=== PATIENT | male | born 1940 | race Caucasian/White ===

== ENCOUNTER 2016-07-03 12:21 | Inpatient (IN) | payer MEDICARE, OTHER ==
[~2016-07-03] VITALS: Ht 180.3 cm; Wt 81.0 kg
[2016-07-07] MEDS ORDERED: OMEP20TA PO (08:41)
[2016-07-07] MEDS ORDERED: ASPI1TAB69 PO (08:41)
[2016-07-07] MEDS ORDERED: AMLO10TA2 PO (08:41)
[2016-07-07] MEDS ORDERED: ROSU1TAB6 PO (08:41)
[2016-07-07] MEDS ORDERED: DIPH25CA PO (08:41)
[2016-07-07] MEDS ORDERED: ZETI10TA5 PO (08:41)
[2016-07-07] MEDS ORDERED: NIAC500T5 PO (08:41)
[2016-07-22 07:18] VITALS: BP 123/80; PULSE 66; RESP 16; TEMP 97.7; O2SAT 97
[2016-07-22] MEDS ORDERED: SODIUM CHLOR 0.9% 250 ML INJ 250 ML ONE (07:26)
[2016-07-22] MEDS ORDERED: VANCOMYCIN HCL 1000 MG VIAL ONE (07:26)
[2016-07-22] MEDS ORDERED: LACTATED RINGER'S 1000 ML INJ 1,000 ML ONE (07:26)
[2016-07-22] MEDS ORDERED: ceFAZolin 2 GM PREMIX 50 ML ONE (07:26)
[2016-07-22] MEDS ORDERED: DEXAMETHASONE SOD PHOS 20 MG/5 ML VIAL ONE (07:26)
[2016-07-22] MEDS ORDERED: INSULIN HUMAN REGULAR 1,000 UNITS/10 ML VIAL SQ PRN (07:30)
[2016-07-22] MEDS ORDERED: SODIUM CHLORID 0.9% 500 ML IV PRN (07:30)
[2016-07-22] MEDS ORDERED: METOPROLOL TARTRATE 25 MG TAB PO PRN (07:30)
[2016-07-22] MEDS ORDERED: POVIDONE IODINE 5% (ANTISEPSIS KIT) 4 APPLICATIONS EACH NARE PRN (07:30)
[2016-07-22] MEDS ORDERED: CHLORHEXIDINE GLUCONATE 2 % 1 PACK (2 CLOTHS) TOPICAL PRN (07:30)
[2016-07-22] MEDS ORDERED: LACTATED RINGER'S 1000 ML IV PRN (07:30)
[2016-07-22] MEDS ORDERED: POVIDONE IODINE 7.5% SCRUB 118 ML BOTTLE TOPICAL SCH (07:45)
[2016-07-22] MEDS ORDERED: ceFAZolin 2 GM PREMIX 50 ML IV SCH (07:45)
[2016-07-22] MEDS ORDERED: ROPIVACAINE PERI-ARTICULAR INJECTION. P-ARTICULR SCH ×5 (07:45)
[2016-07-22] MEDS ORDERED: VANCOMYCIN 1000 MG/NS 250 ML (for <70 kg) IV SCH ×2 (07:45)
[2016-07-22] MEDS ORDERED: TRANEXAMIC ACID IV SCH ×2 (07:45→12:00)
[2016-07-22] MEDS ORDERED: DEXAMETHASONE SOD PHOS 20 MG/5 ML VIAL IV SCH (07:45)
[2016-07-22] MEDS ORDERED: SODIUM CHLORIDE 0.9% IV SCH ×2 (07:45→12:00)
[2016-07-22] MEDS ORDERED: GENTAMICIN SULFATE 80 MG/2 ML VIAL ONE (07:58)
[2016-07-22] MEDS ORDERED: ACETAMINOPHEN 1000 MG/100 ML VIAL IV ONE (08:11)
[2016-07-22] MEDS ORDERED: fentaNYL CITRATE 250 MCG/5 ML AMP ONE (08:11)
[2016-07-22] MEDS ORDERED: MIDAZOLAM HCL 2 MG/2 ML VIAL ONE ×2 (08:11→11:05)
[2016-07-22] MEDS ORDERED: ALUMINUM/MAGNESIUM/SIMETH 30 ML CUP PO PRN (10:30)
[2016-07-22] MEDS ORDERED: MORPHINE SULFATE 4 MG/ML INJ IV PUSH PRN (10:30)
[2016-07-22] MEDS ORDERED: diphenhydrAMINE HCL 50 MG/ML VIAL IV PRN (10:30)
[2016-07-22] MEDS ORDERED: Post-op Orders (for Pharmacy) MISC XX ONE (10:30)
[2016-07-22] MEDS ORDERED: NALOXONE HCL 0.4 MG/ML AMP IV PRN (10:30)
[2016-07-22] MEDS ORDERED: SODIUM CHLORIDE 0.9% FLUSH 5 ML FLUSH IVF PRN (10:30)
[2016-07-22] MEDS ORDERED: MAGNESIUM HYDROXIDE SUSP 30 ML CUP PO PRN (10:30)
[2016-07-22] MEDS ORDERED: SODIUM CHLOR 0.9% 1000 ML INJ 1,000 ML IV SCH (10:30)
[2016-07-22] MEDS ORDERED: BISACODYL 10 MG SUPP RECTAL PRN (10:30)
[2016-07-22] MEDS ORDERED: ONDANSETRON HCL 4 MG/2 ML VIAL IVP PRN (10:30)
[2016-07-22] MEDS ORDERED: ACETAMINOPHEN/HYDROcodone 325 MG/5 MG TAB PO PRN (10:30)
--- NOTE | 2016-07-22 10:33 | PD.OP ---
cc: Sami Abbott MD Operative Report Date of Surgery: Jul 22, 2016 Preoperative Diagnosis: Right knee severe osteoarthritis. Postoperative Diagnosis: Same Procedure: Right total knee arthroplasty. Anesthesia: Spinal and adductor canal block Surgeon: Sami Abbott Environmental Tech(s): PAUL Manrique The surgical procedure was assisted by my Advanced Registered Nurse Practitioner. My SPRING COVERER presence was necessary throughout this case for the manipulation and positioning of the surgical extremity. My SPRING COVERER was assisting me throughout the duration of this procedure. The skill set of an Advance Registered Nurse Practitioner was medically necessary to complete this procedure. During the surgical case, the surgical garment assembler was working at the back table and the Advance Registered Nurse Practitioner was directly assisting me. Operation and Findings: IMPLANTS: DePuy Attune: Patella: size 38. Femur, posterior stabilized size 8. Tibia, rotating platform size 7. Tibial insert, rotating platform, posterior stabilized size 5 mm thickness. ESTIMATED BLOOD LOSS: 200 cc TOURNIQUET TIME: 39 minutes at 250 mmHg pressure. JUSTIFICATION FOR PROCEDURE: The patient has end-stage osteoarthritis to the knee. There is an attached conservative measures pathway form in the chart that describes the nonoperative measures that were undertaken prior to consideration of surgical management. The patient understood the risks and benefits of surgical management. See my office notes for further details PROCEDURE: The patient was brought back to the operative theatre. Adequate anesthesia was obtained. The patient received intravenous vancomycin and Ancef. The lower extremity was prepped and draped in the usual sterile fashion.The leg was exsanguinated, the tourniquet was raised. A standard anterior incision was performed followed by medial parapatellar arthrotomy was performed. End-stage arthritis was identified. Osteotomy of the patella was performed. We drilled holes for the patella. We trialed the patella component. We placed an intramedullary guide into the distal femur. We ultimately resected 13 mm off of the distal femur in 5 degrees of valgus. The remnants of the ACL and PCL were resected. Osteotomy of the proximal tibia was performed, resecting 5 mm off of the medial side. This was done with 3 degrees of posterior slope using an extramedullary guide. The distal end of the guide was placed in the mid aspect of the ankle. The femur was sized, and four chamfer cuts were completed in 3 of external rotation. We then cut the central box in the distal femur to replace the PCL. We resected the remnants of the menisci and removed osteophytes off of the femur and tibia. We then trialed the knee. We punched the tibia for the keel, and then used standard technique to cement in components. Excess cement was removed. We trialed the knee again and the final polyethylene thickness was chosen to provide extension to 0 degrees, and flexion of 140 degrees to gravity. The ligaments were appropriately balanced. Lateral release was not necessary to obtain excellent patellofemoral tracking. The tourniquet was released and adequate hemostasis was obtained. An intra- articular injection of a ropivacaine cocktail was injected. The posterior knee was inspected for excess cement, which was removed. The final polyethylene was put into position after thorough irrigation. We then closed deep fascia with a #2 Stratafix followed by skin with 2-0 Vicryl followed by ozzy. Postop plan is to weight-bear as tolerated. DVT prophylaxis will be performed with Gino, HECTOR hartmann, early mobilization, and Lovenox followed by aspirin. Sami Abbott MD Jul 22, 2016 10:33
[2016-07-22] MEDS ORDERED: ENOX40P SQ (10:35)
[2016-07-22] MEDS ORDERED: ASPI325T PO (10:35)
[2016-07-22] MEDS ORDERED: NORC5TAB PO (10:35)
[2016-07-22] MEDS ORDERED: PILL SPLITTER OTHER PRN (11:30)
[2016-07-22] MEDS ORDERED: ONDANSETRON HCL 4 MG/2 ML VIAL IV PUSH ONE (12:00)
[2016-07-22] MEDS ORDERED: PROPOFOL 200 MG/20 ML AMP IV ONE (12:00)
[2016-07-22] MEDS ORDERED: LACTATED RINGER'S 1000 ML INJ 1,000 ML IV ONE (12:00)
[2016-07-22] MEDS ORDERED: ePHEDrine/NS 25 MG/5 ML SYR IV ONE (12:00)
--- NOTE | 2016-07-22 13:03 | RADRPT ---
EXAM DATE/TIME: 07/22/2016 12:27 [facility] COMPARISON: No previous studies available for comparison. INDICATIONS : Post op right knee replacement. MEDICAL HISTORY : None. SURGICAL HISTORY : Total knee replacement, right. ENCOUNTER: Initial ACUITY: 1 day PAIN SCORE: 0/10 LOCATION: Right knee FINDINGS: AP and lateral views of the knee following arthroplasty reveals a prosthesis in anatomic alignment. F racture is not appreciated. Surgical drain is evident CONCLUSION: Status post total knee arthroplasty. Ignacio Andres MD FACR Board Certified Radiologist. This report was verified electronically.
--- NOTE | 2016-07-22 14:42 | HHI.DCPOC ---
Discharge Care Plan Diagnosis: (1) Primary localized osteoarthrosis, lower leg (2) Status post total knee replacement, right Your Health Problems Are: Difficulty with ADL Goals to Promote Your Health * To prevent worsening of your condition and complications * To maintain your health at the optimal level Directions to Meet Your Goals Take your medications as prescribed Follow your dietary instruction Follow activity as directed Keep your appointments as scheduled Take your immunizations and boosters as scheduled If your symptoms worsen call your PCP, if no PCP go to Urgent Care Center or Emergency Room Smoking is Dangerous to Your Health. Avoid second hand smoke Call the 24-hour hour crisis hotline for domestic abuse at Mateo Hickey Jul 22, 2016 14:42
--- NOTE | 2016-07-22 14:43 | HHI.FF ---
Face to Face Verification Diagnosis: (1) Primary localized osteoarthrosis, lower leg (2) Status post total knee replacement, right Physical Therapy Gait training, Transfer training, bed to chair Knee: Total knee Right LE Weight Bearing: WB as tolerated Right LE Range of Motion: Active ROM Nursing Nursing: David teaching, Dressing changes Dressing Changes: Daily dressing change I have seen patient Micha Boone on 07/22/16. My clinical findings support the need for the requested home health care services because: Limited ability to care for self High risk of falls I certify that my clinical findings support that this patient is homebound because: Post-op weakness Unsteady gait/balance Mateo Hickey Jul 22, 2016 14:43
[2016-07-22] MEDS ORDERED: WALKER WHEELS/F1 MIS (14:45)
[2016-07-22] MEDS ORDERED: CPMMACHINE (14:45)
[2016-07-22] MEDS ORDERED: COMMODE 3-IN-11 MIS (14:45)
[2016-07-22 16:34] VITALS: BP 114/61; PULSE 71; RESP 16; TEMP 96.8; O2SAT 96
--- NOTE | 2016-07-22 18:17 | HHI.PR ---
Objective Objective Results - Vital Signs Date Time Temp Pulse Resp B/P Pulse Ox O2 Delivery O2 Flow Rate FiO2 07/22/16 16:34 96.8 71 16 114/61 96 07/22/16 13:15 Room Air 07/22/16 12:30 97.6 54 16 109/69 98 Room Air 07/22/16 12:15 55 16 117/64 98 Room Air 07/22/16 12:00 55 16 103/59 99 Room Air 07/22/16 11:45 56 16 98/57 99 Nasal Cannula 3 07/22/16 11:30 64 16 99/55 99 Nasal Cannula 3 07/22/16 11:15 61 16 103/62 97 Nasal Cannula 3 07/22/16 10:58 97.3 60 16 94/65 97 Nasal Cannula 3 07/22/16 07:18 97.7 66 16 123/80 97 I/O 07/21/16 07/21/16 07/21/16 07/22/16 07/22/16 07/22/16 07:00 15:00 23:00 07:00 15:00 23:00 Intake Total 2091 ml Output Total 950 ml Balance 1141 ml Intake IV Total 491 ml Other 1600 ml Output Urine Total 750 ml Estimated Blood Loss 200 ml Other Results Laboratory Tests Test 07/22/16 07:21 Blood Type AB POSITIVE Antibody Screen NEGATIVE Blood Bank Comment A/P Assessment and Plan PT SEEN AND EXAMINED FACE TO FACE TO TIME SPENT WITH PT CHART WAS REVIEWED INCLUDING MEDS AND RAD DATA PLAN OF CARE WAS HUNTER HARRISON PT CONSULT NOTE JACOBY FOLLOWED BY Monique Koo MD Jul 22, 2016 18:17
[2016-07-22 19:54] VITALS: BP 109/56; PULSE 71; RESP 16; TEMP 97.1; O2SAT 96
[2016-07-22] MEDS: SODIUM CHLORIDE 0.9% FLUSH 5 ML FLUSH IVF SCH (21:00)
[2016-07-22] MEDS ORDERED: ZOLPIDEM TARTRATE 5 MG TAB PO PRN (21:00)
[2016-07-22] MEDS ORDERED: diphenhydrAMINE HCL 25 MG CAP PO PRN (21:00)
--- NOTE | 2016-07-22 21:54 | MB ---
cc: MANNY MYERS DATE OF CONSULTATION: 07/22/2016 DATE OF : 1940 REASON FOR CONSULTATION Medical management, status post right total knee arthroplasty. Travel in the last 30 days: None to my knowledge. HISTORY OF PRESENT ILLNESS This is a pleasant 76-year-old white male, the patient has had osteoarthritis with pain in his right knee, he has been under the care of orthopedics for outpatient therapy. The patient opted for right total knee arthroplasty so he could improve his ambulation, ADLs and quality of life. The patient currently is status post his surgery today, he is resting in the room, up in the chair, no complaints of pain. He is alert, oriented and has no shortness of breath. PAST MEDICAL HISTORY 1. Osteoarthritis. 2. Gastroesophageal reflux disease. 3. Hyperlipidemia. 4. Hypertension. 5. Previous cataracts. PAST SURGICAL HISTORY 1. Repair of deviated septum. 2. Cataract repairs bilateral. 3. Right leg vein stripping. ALLERGIES NO KNOWN. MEDICATIONS Medications reconciled. 1. Zetia. 2. Amlodipine. 3. Rosuvastatin. 4. Omeprazole. 5. Niacin. SOCIAL HISTORY The patient is . Currently lives at home with his . He denies any alcohol, quit drinking totally before Sharon. He does smoke an occasional cigar. No illicit drugs. FAMILY HISTORY N/A. REVIEW OF SYSTEMS A 10-point review was obtained. Positives noted are his osteoarthritis, GERD, tobacco abuse with cigars, previous ETOH abuse, otherwise systems are negative. The patient does have an occasional bout of diarrhea. PHYSICAL EXAMINATION VITAL SIGNS: Temperature is 96.8, pulse 71, respirations 16, blood pressure 114/61, O2 96, the patient is on room air. GENERAL: Well-nourished white male, looks younger than his stated age, resting in the chair. Alert, oriented and conversational, a good historian. SKIN: Skin is pink, warm and dry. HEENT: Atraumatic, normocephalic. PERRLA. Mucous membranes are pink and moist. NECK: Neck is supple. CARDIOVASCULAR: S1, S2. Regular, rate and rhythm. No murmurs, rubs or gallops appreciated. PULMONARY: Essentially clear anteriorly and posteriorly with no wheezes, rales or rhonchi. ABDOMEN: Flat, soft, nontender, nondistended. Active bowel sounds. MUSCULOSKELETAL: He can move his extremities with purpose. He has equal hand cobol mainframe developer. His right leg is bandaged status post his right knee arthroplasty. He can wiggle his toes on command. Currently having no pain. NEUROLOGIC: Alert, oriented. PSYCHIATRIC: Appropriate mood and affect. DIAGNOSTIC DATA Drawn on 07/06/2016: WBC count 4.7, RBC 4.71, hemoglobin 14.3, hematocrit 42.3, platelet count 163. Only abnormal noted is baso auto percentage 2.6. PT/INR 1. Chemistry: 140, potassium 4.3, chloride 103, carbon dioxide 30, BUN 14, creatinine 1.29, GFR 54, fasting glucose was 112, total bilirubin 1.5. Urine was yellow, clear, negative for any protein, glucose, ketones, nitrites or bilirubin, no leukocyte esterase, pH 5.5, specific gravity 1.014. IMAGING STUDIES Show right knee x-ray to be status post total knee arthroplasty. ASSESSMENT 1. Hypertension. 2. Hyperlipidemia. 3. Gastroesophageal reflux disease. 4. Osteoarthritis status post right knee arthroplasty. PLAN Follow the patient for his medical management. We will monitor his vital signs, any lab work. I have ordered labs for in the morning for evaluation. We will monitor for any anemia. The patient will be on a regular diet. SCDs bilateral. The patient can be up in chair. His pain management and postop care will be managed per Ortho. The patient has bowel regimen with stool softeners and laxative p.r.n. Protonix for PUD prophylaxis and Lovenox for DVT prophylaxis. Thank you very much for the consult, we will follow. DICTATED BY: Arpita Hawk NP Manny Myers MD JP/KIRAN /6:13 PM /9:14 PM PT SEEN AND EXAMINED IN DAY OF ADMISSION ABOVE CHART WAS REVIEWED PLAN OF CARE WAS HUNTER MOLINA
[2016-07-22] MEDS: ACETAMINOPHEN/HYDROcodone 325 MG/5 MG TAB PO PRN (22:01)
[2016-07-23 00:30] VITALS: BP 106/60; PULSE 62; RESP 17; TEMP 96.5; O2SAT 96
[2016-07-23] MEDS: ACETAMINOPHEN/HYDROcodone 325 MG/5 MG TAB PO PRN ×2 (02:21→13:31)
[2016-07-23 05:16] LABS: HEMATOCRIT 33.6 % (39.0-51.0); MEAN CELL VOLUME 87.5 FL (80.0-100.0); MEAN CORPUSCULAR HEMOGLOBIN 30.5 PG (27.0-34.0); MEAN CORPUSCULAR HGB CONC 34.9 % (32.0-36.0); PLATELET COUNT 163 TH/MM3 (150-450); RED BLOOD COUNT 3.84 MIL/MM3 (4.50-5.90); RED CELL DISTRIBUTION WIDTH 12.7 % (11.6-17.2); REVIEW FLAG FINAL; WHITE BLOOD COUNT 13.5 TH/MM3 (4.0-11.0)
[2016-07-23 05:34] LABS: BICARBONATE 25.4 MEQ/L (21.0-32.0); POTASSIUM 4.6 MEQ/L (3.5-5.1)
[2016-07-23 07:38] VITALS: BP 96/55; PULSE 63; RESP 16; TEMP 96.7; O2SAT 97
[2016-07-23] MEDS ORDERED: DEXAMETHASONE SOD PHOS 20 MG/5 ML VIAL IV ONE (07:45)
[2016-07-23] MEDS ORDERED: NIACIN 500 MG EXTENDED RELEASE TAB PO SCH (09:00)
[2016-07-23] MEDS ORDERED: PANTOPRAZOLE SOD 20 MG DELAYED RELEASE TAB PO SCH (09:00)
[2016-07-23] MEDS: SODIUM CHLORIDE 0.9% FLUSH 5 ML FLUSH IVF SCH (09:00)
[2016-07-23] MEDS ORDERED: EZETIMIBE 10 MG TAB PO SCH (09:00)
[2016-07-23] MEDS ORDERED: ENOXAPARIN SODIUM 40 MG/0.4 ML SYRINGE SQ SCH (10:00)
[2016-07-23 10:49] VITALS: O2SAT 97
--- NOTE | 2016-07-23 11:46 | HHI.PR ---
Subjective Subjective Remarks minimal pain no bm yet eating okay working with PT no n/v no fever family at bsd Review of Systems Constitutional Constitutional Remarks 12 point review of systems completed, negative except as noted above Vitals/Results Intake & Output 07/22/16 07/22/16 07/23/16 15:00 23:00 07:00 Intake Total 2091 ml 1025 ml 480 ml Output Total 950 ml 350 ml Balance 1141 ml 1025 ml 130 ml Intake Oral 480 ml 480 ml IV Total 491 ml 545 ml Other 1600 ml Output Urine Total 750 ml 350 ml Estimated Blood Loss 200 ml # Voids 1 1 # Bowel Movements 0 0 Vital Signs Vital Signs Date Time Temp Pulse Resp B/P Pulse Ox O2 Delivery O2 Flow Rate FiO2 07/23/16 10:49 97 07/23/16 07:38 96.7 63 16 96/55 97 07/23/16 00:30 96.5 62 17 106/60 96 07/22/16 19:54 97.1 71 16 109/56 96 07/22/16 19:14 Room Air 07/22/16 16:34 96.8 71 16 114/61 96 07/22/16 13:15 Room Air 07/22/16 12:30 97.6 54 16 109/69 98 Room Air 07/22/16 12:15 55 16 117/64 98 Room Air 07/22/16 12:00 55 16 103/59 99 Room Air 07/22/16 11:45 56 16 98/57 99 Nasal Cannula 3 CBC/BMP: 07/23/16 0455 07/23/16 0455 Lab Results Laboratory Tests Test 07/23/16 04:55 White Blood Count 13.5 TH/MM3 Red Blood Count 3.84 MIL/MM3 Hemoglobin 11.7 GM/DL Hematocrit 33.6 % Mean Corpuscular Volume 87.5 FL Mean Corpuscular Hemoglobin 30.5 PG Mean Corpuscular Hemoglobin 34.9 % Concent Red Cell Distribution Width 12.7 % Platelet Count 163 TH/MM3 Mean Platelet Volume 9.3 FL Sodium Level 140 MEQ/L Potassium Level 4.6 MEQ/L Chloride Level 108 MEQ/L Carbon Dioxide Level 25.4 MEQ/L Anion Gap 7 MEQ/L Blood Urea Nitrogen 18 MG/DL Creatinine 1.09 MG/DL Estimat Glomerular Filtration 65 ML/MIN Rate Random Glucose 124 MG/DL Calcium Level 8.7 MG/DL Physical Exam General General Appearance: Well Developed, Well Nourished, No Acute Distress, Comfortable Eyes Eye Exam: Pupils Equal, Pupils Reactive Ears & Nose Ears & Nose Exam: Nasal Mucosa Rainier Throat Throat Exam: Oral Mucosa Rainier & Moist Neck Neck Exam: Neck Supple, Trachea Midline Pulmonary Resp Exam: Clear Bilaterally, No Distress Cardiology CV Exam: Regular, Good Perfusion Gastrointestinal/Abdomen GI Exam: Soft, Non-Tender, Bowel Sounds Present, Non-Distended Musculoskeletal MS Exam: Joints Intact MS Remarks Right knee dressing intact Integumentary Skin Exam: Warm, Dry Extremeties Extremities Exam: No Edema, Pedal Pulses Palpable Neurologic Neuro Exam: Alert, Awake, Oriented, Speech Clear, Supervisor Telephone Information Equal Psychiatric Psych Exam: Appropriate Responses VTE Prophylaxis VTE Prophylaxis Device: TEDs VTE Prophylaxis Meds: Lovenox Assessment/Plan Problem List: (1) Status post total knee replacement, right Assessment/Plan Osteoarthritis status post right knee arthroplasty. Hypertension. Hyperlipidemia. Gastroesophageal reflux disease. Leukocytosis Plan: continue with post op ortho care Lovenox for DVT prophylaxis Protonix for GI prophylaxis Post op care pain management BP management continue home meds Leukocytosis, poss. secondary to stress follow CBC in am H&H stable Lovenox for DVT prophylaxis Bowel regimen Discharge planning Labs in the morning D/W RN D/W Dr. Avalos D/W pt and family This patient was seen by myself and Dr. Avalos, this note is written on her behalf Yris Mckeon Jul 23, 2016 11:46
--- NOTE | 2016-07-23 12:21 | PD.ORT.PN ---
Subjective Post Op Day #: 1 Subjective Remarks Patient is OOB and ambulatory. Patient met me at the door. Patient denies any pain to the right knee. Patient requesting to go home with home health today. Objective Vitals Vital Signs Date Time Temp Pulse Resp B/P Pulse Ox O2 Delivery O2 Flow Rate FiO2 07/23/16 10:49 97 07/23/16 07:38 96.7 63 16 96/55 97 07/23/16 00:30 96.5 62 17 106/60 96 07/22/16 19:54 97.1 71 16 109/56 96 07/22/16 19:14 Room Air 07/22/16 16:34 96.8 71 16 114/61 96 07/22/16 13:15 Room Air 07/22/16 12:30 97.6 54 16 109/69 98 Room Air 07/22/16 12:15 55 16 117/64 98 Room Air I/O 07/22/16 07/22/16 07/22/16 07/23/16 07/23/16 07/23/16 07:00 15:00 23:00 07:00 15:00 23:00 Intake Total 2091 ml 1025 ml 480 ml Output Total 950 ml 350 ml Balance 1141 ml 1025 ml 130 ml Intake Oral 480 ml 480 ml IV Total 491 ml 545 ml Other 1600 ml Output Urine Total 750 ml 350 ml Estimated Blood Loss 200 ml # Voids 1 1 # Bowel Movements 0 0 Result Diagram: 07/23/16 0455 07/23/16 0455 Procedures Right TKA Objective Remarks Patient's dressing is changed with no drainage. Incision is well approximated with surgical clips intact. No redness or s/s of infection. EHL/TA/G intact. 2+ pedal pulse. No swelling. Calf is soft and nontender. + SILT. Assessment & Plan Ortho Post Op Day #: 1 Problem List: Assessment and Plan POD #1: Right TKA 1. WBAT RLE 2. Lovenox for DVT prophylaxis 3. Ice to the right knee PRN 4. Stable for discharge home with home health today. Mateo Hickey Jul 23, 2016 12:20
[2016-07-23 12:35] VITALS: BP 116/63; PULSE 68; RESP 16; TEMP 95.9; O2SAT 97
[2016-07-23] MEDS ORDERED: MULTIVITAMINS/MINERALS THERAPEUTIC TAB PO SCH (21:00)
[2016-07-23] MEDS ORDERED: DOCUSATE SODIUM 100 MG CAP PO SCH (21:00)
[2016-07-23] MEDS ORDERED: ATORVASTATIN 20 MG TAB PO SCH (21:00)
--- NOTE | 2016-07-27 20:08 | HHI.DS ---
Discharge Summary Admission Date Jul 22, 2016 at 05:31 Discharge Date: Jul 23, 2016 Admitting Diagnosis Primary localized OA, lower leg Status post total knee replacement, right Diagnosis: (1) Primary localized osteoarthrosis, lower leg Diagnosis: Principal (2) Status post total knee replacement, right Diagnosis: Principal Procedures Right TKA Brief History This is a 76 year old male patient with severe OA of the right knee CBC/BMP: 07/23/16 0455 07/23/16 0455 PE at Discharge Patient's dressing is changed with no drainage. Incision is well approximated with surgical clips intact. No redness or s/s of infection. EHL/TA/G intact. 2+ pedal pulse. No swelling. Calf is soft and nontender. + SILT. Hospital Course The patient was admitted for severe OA of the right knee to have a right TKA. The patient's surgery went well without complication. The patient is WBAT. The patient is on Lovenox for DVT prophylaxis. The patient had a regular diet. The patient was discharged home with home health on and will f/u with Dr. Abbott in 1-2 weeks as previously scheduled. Pt Condition on Discharge: Stable Discharge Disposition: Disch w/ Home Health Serv Discharge Instructions Diet Instructions: As Tolerated, No Restrictions Activities You Can Perform: Weight Bearing as Deisi Activities to Avoid: Strenuous Activity Follow up Referrals: Orthopedics with Sami Abbott MD [facility]/ with NURSE RESIDENTIAL SERVICE TECHNICIAN - [phone] New Medications: Aspirin (Aspirin) 325 Mg Tab 325 MG PO DAILY Start Aspirin after Lovenox is completed. Prevent Blood Clot # 30 Ref 0 TAB Commode 3-in-1 (Commode 3-in-1) 1 Mis Mis 1 EA .ROUTE DIRECTED #1 Ref 0 EA CPM-Continuous Passive Motion Machine (CPM-Continuous Passive Motion Machine) 1 Ea Device 1 EA .ROUTE DIRECTED #1 Ref 0 EA Enoxaparin Inj (Lovenox Inj) 40 Mg/0.4 Ml Syr 40 MG SQ DAILY Start Aspirin after Lovenox is completed. Blood Clot Prevention # 10 Ref 0 SYRINGE Hydrocodone-Acetaminophen ([place]) 5-325 mg Tab 1-2 TAB PO Q4H PRN PAIN #60 Ref 0 TAB Walker with Front Wheels (Walker with Front Wheels) 1 Mis Mis 1 EA .ROUTE DIRECTED #1 Ref 0 EA Continued Medications: Amlodipine (Amlodipine) 10 Mg Tab 10 MG PO DAILY Blood Pressure Management #30 Ref 0 TAB Diphenhydramine (Diphenhydramine) 25 Mg Cap 25 MG PO HS PRN INSOMNIA Ref 0 CAP Ezetimibe (Zetia) 10 Mg Tab 5 MG PO DAILY #30 Ref 0 TAB Niacin (Niacin) 500 Mg Tab 1000 MG PO DAILY Cholesterol Management #30 Ref 0 TAB Omeprazole (Omeprazole) 20 Mg Tab 20 MG PO DAILY #30 Ref 0 TAB Rosuvastatin (Rosuvastatin) 10 Mg Tab 10 MG PO HS Cholesterol Management Ref 0 TAB Discontinued Medications: Aspirin (Aspirin) 81 Mg Tabdr 81 MG PO DAILY TAB Mateo Hickey Jul 27, 2016 20:07
== END 2016-07-23 15:14 | disposition home health service (06) | DRG 470 ==
LOC: HSDI 07-22 05:31 → EDUNIT# 07-22 13:00 → N06B 07-22 13:07
PROVIDERS: ADMIT Orthopaedic Surgery; ATTEND Orthopaedic Surgery
PROC: 3E0T3BZ Introduction of Anesthetic Agent into Peripheral Nerves and Plexi, Percutaneous Approach (ICD-10-PCS; 2016-07-22)
PROC: 0SRC0J9 Replacement of Right Knee Joint with Synthetic Substitute, Cemented, Open Approach (ICD-10-PCS; principal; 2016-07-22 08:25)
DX: M17.9 Osteoarthritis of knee, unspecified (principal); I10 Essential (primary) hypertension; E78.5 Hyperlipidemia, unspecified; K21.9 Gastro-esophageal reflux disease without esophagitis; F17.290 Nicotine dependence, other tobacco product, uncomplicated; D72.829 Elevated white blood cell count, unspecified
CPT/HCPCS: 73560; 80048; 85027; 86850; 86900; 86901; 94150; C1776; J0131; J0171; J0690; J0735; J1100; J1580; J1650; J1885; J2250; J2405; J2795; J3010; J3370; J7030; J7050; J7120; L1830

== ENCOUNTER → 2016-07-06 | Outpatient (CLI) | payer MEDICARE, OTHER ==
[~2016-07-06] MED LIST: AMLO10TA2 PO; ASPI1TAB69 PO; ASPI325T PO; COMMODE 3-IN-11 MIS; CPMMACHINE; DIPH25CA PO; ENOX40P SQ; NIAC500T5 PO; NORC5TAB PO; OMEP20TA PO; ROSU1TAB6 PO; WALKER WHEELS/F1 MIS; ZETI10TA5 PO
[2016-07-06 10:06] LABS: AUTOMATED NEUTROPHIL # 2.8 TH/MM3 (1.8-7.7); BASOPHIL # 0.1 TH/MM3 (0-0.2); BASOPHIL % 2.6 % (0.0-2.0); EOSINOPHIL # 0.2 TH/MM3 (0-0.4); EOSINOPHIL % 3.6 % (0.0-4.0); HEMATOCRIT 42.3 % (39.0-51.0); HEMO FLAGS DIFF FINAL; LYMPH % 27.2 % (9.0-44.0); LYMPHOCYTE # 1.3 TH/MM3 (1.0-4.8); MEAN CELL VOLUME 89.7 FL (80.0-100.0); MEAN CORPUSCULAR HEMOGLOBIN 30.3 PG (27.0-34.0); MEAN CORPUSCULAR HGB CONC 33.8 % (32.0-36.0); MONO % 6.6 % (0.0-8.0); PLATELET COUNT 163 TH/MM3 (150-450); RED BLOOD COUNT 4.71 MIL/MM3 (4.50-5.90); RED CELL DISTRIBUTION WIDTH 12.4 % (11.6-17.2); WHITE BLOOD COUNT 4.7 TH/MM3 (4.0-11.0)
[2016-07-06 10:06] LABS: BLOOD, URINE NEG (NEG); COMMENT (UR) CULT NOT INDICATED; CULTURE IF INDICATED CULT NOT INDICATED; GLUCOSE,URINE NEG (NEG); KETONE, URINE NEG (NEG); MUCUS URINE FEW /lpf (OCC); NITRITE,URINE NEG (NEG); PH, URINE 5.5 (5.0-8.5); SQUAMOUS EPITHELIAL CELL URINE <1 /hpf (0-5); URINE COLOR YELLOW (YELLW/STRAW)
[2016-07-06 10:13] LABS: APTT (PATIENT) 28.9 SEC (24.3-30.1); PROTHROMBIN TIME - PATIENT 11.3 SEC (9.8-11.6)
[2016-07-06 10:29] LABS: WESTERGREN SEDIMENTATION RATE 9 mm/hr (0-20)
[2016-07-06 10:39] LABS: ALKALINE PHOSPHATASE 49 U/L (45-117); ALT (GPT) 28 U/L (12-78); ANION GAP 7 MEQ/L (5-15); AST (GOT) 20 U/L (15-37); BLOOD UREA NITROGEN 14 MG/DL (7-18); CHLORIDE 103 MEQ/L (98-107); GLOMERULAR FILTRATION RATE 54 ML/MIN (>89); GLUCOSE,FASTING 112 MG/DL (74-99); POTASSIUM 4.3 MEQ/L (3.5-5.1); SODIUM (NA) 140 MEQ/L (136-145); TOTAL BILIRUBIN ADULT 1.5 MG/DL (0.2-1.0)
--- NOTE | 2016-07-06 15:31 | RADRPT ---
EXAM DATE/TIME: 07/06/2016 11:16 [facility] COMPARISON: No previous studies available for comparison. INDICATIONS : Evaluate for pneumonia, pneumothorax or communicable disease. Pre-op, right total knee replacement. MEDICAL HISTORY : None. SURGICAL HISTORY : None. ENCOUNTER: Initial ACUITY: 1 day PAIN SCORE: 0/10 LOCATION: Bilateral chest FINDINGS: PA and lateral views of the chest demonstrate the lungs to be symmetrically aerated without evidence of mass, infiltrate or effusion. The cardiomediastinal contours are unremarkable. The osseous struct ures demonstrate degenerative changes in the disc spaces but are otherwise intact. CONCLUSION: 1. No acute cardiopulmonary findings. Mateo Andres MD on July 06, 2016 at 15:17 Board Certified Radiologist. This report was verified electronically.
--- NOTE | 2016-07-07 10:38 | EKG ---
Date Performed: 07/06/2016 Time Performed: 09:20:50 PTAGE: 76 years EKG: SINUS BRADYCARDIA BORDERLINE ECG NO PREVIOUS TRACING DOCTOR: Kimani Longoria Interpretating Date/Time 07/07/2016 10:38:04
== END ==
LOC: CPRE 08:51
PROVIDERS: ATTEND Orthopaedic Surgery
DX: Z01.810 Encounter for preprocedural cardiovascular examination (principal); Z01.812 Encounter for preprocedural laboratory examination; M25.50 Pain in unspecified joint; M17.11 Unilateral primary osteoarthritis, right knee; R00.1 Bradycardia, unspecified
CPT/HCPCS: 36415; 71020; 80053; 81001; 85025; 85610; 85652; 85730; 93005

== ENCOUNTER 2016-07-29 02:42 | Emergency (ER) | payer MEDICARE, OTHER ==
[~2016-07-29] VITALS: Ht 179.1 cm; Wt 82.0 kg
[~2016-07-29 02:42] MED LIST changes: -ASPI1TAB69 PO
[2016-07-29 02:44] VITALS: BP 131/64; PULSE 85; RESP 18; TEMP 98.3; O2SAT 98
--- NOTE | 2016-07-29 06:12 | PD ---
HPI Chief Complaint: Pain: Acute or Chronic Time Seen by Provider: 05:14 Travel History International Travel<30 days: No Contact w/Intl Traveler<30days: No Traveled to known affect area: No History of Present Illness HPI The patient is a 76 year old male who presents to the [facility] emergency department with a history of right knee replacement, currently 7 days postop who presents with increased pain over the last 24 hours. The patient reports that yesterday he went to see Dr. Abbott and had a new bandage applied. After having the bandage applied he has had increased pain anteriorly along the knee. He denies having any increased swelling. He denies having any increased redness. He denies having any increased drainage. He reports that he has been using his Lovenox as prescribed. He denies having any fevers, chills, nausea, vomiting, or diarrhea. Review of systems, the patient denies any recent cough, congestion, neck pain, chest pain, shortness of breath, abdominal pain, vomiting , diarrhea, urinary symptoms, or neurologic symptoms. [facility] Past Medical History Narrative Medical The patient's past medical history is significant for hypertension, hyperlipidemia, acid reflux, arthritis. Cancer: No Cardiovascular Problems: No Diabetes: No Diminished Hearing: No Endocrine: No Genitourinary: No Hepatitis: No Hiatal Hernia: No Hypertension: Yes Immune Disorder: No Musculoskeletal: Yes (R KNEE PAIN, ) Neurologic: No Psychiatric: No Reproductive: No Respiratory: No Thyroid Disease: No Tetanus Vaccination: < 5 Years Influenza Vaccination: Yes Past Surgical History Narrative Surgical The patient's past surgical history is significant for bilateral cataract surgery, sinus surgery, deviated septum repair, vasectomy, right lower extremity varicose vein stripping, right total knee replacement. AICD: No Eye Surgery: Yes (CATARACT SURGERY BILATERAL) Joint Replacement: No Oral Surgery: Yes (SINUS SURGERY) Social History Alcohol Use: No Tobacco Use: No Substance Use: No Allergies-Medications (Allergen,Severity, Reaction): Coded Allergies: No Known Allergies (Unverified , 07/29/16) Reported Meds & Prescriptions Reported Meds & Active Scripts Active [place] (Hydrocodone-Acetaminophen) 5-325 mg Tab 1-2 Tab PO Q4H PRN Aspirin 325 Mg Tab 325 Mg PO DAILY Start Aspirin after Lovenox is completed. Reported Diphenhydramine (Diphenhydramine HCl) 25 Mg Cap 25 Mg PO HS PRN Amlodipine (Amlodipine Besylate) 10 Mg Tab 10 Mg PO DAILY Rosuvastatin (Rosuvastatin Calcium) 10 Mg Tab 10 Mg PO HS Zetia (Ezetimibe) 10 Mg Tab 5 Mg PO DAILY Omeprazole 20 Mg Tab 20 Mg PO DAILY Niacin 500 Mg Tab 1,000 Mg PO DAILY Review of Systems Except as stated in HPI: all other systems reviewed are Neg General / Constitutional: No: Fever Eyes: No: Visual changes HENT: No: Headaches Cardiovascular: No: Chest Pain or Discomfort Respiratory: No: Shortness of Breath Gastrointestinal: No: Nausea, Vomiting, Diarrhea, Abdominal Pain, Changes in Bowel Habits, Indigestion, Loss of Appetite Genitourinary: No: Dysuria Musculoskeletal: Positive: Arthralgias, Edema, Pain Skin: No Rash Neurologic: No: Weakness, Focal Abnormalities, Change in Mentation Psychiatric: No: Depression Endocrine: No: Polydipsia Hematologic/Lymphatic: No: Easy Bruising Physical Exam Narrative General: The patient is well-developed well-nourished male in no acute distress. Head and Neck exam: Head is normocephalic atraumatic. Eyes: EOMI, pupils are equal round and reactive to light. Nose: Midline septum with pink mucous membranes Mouth: Dentition unremarkable. Moist mucus membranes. Posterior oropharynx is not erythematous. No tonsillar hypertrophy. Uvula midline. Airway patent. Neck: No palpable lymphadenopathy. No nuchal rigidity. No thyromegaly. Cardiovascular: Regular rate and rhythm without murmurs, gallops, or rubs. Lungs: Clear to auscultation bilaterally. No wheezes, rhonchi, or rales. Abdomen: Soft, without tenderness to palpation in all 4 quadrants of the abdomen. No guarding, rebound, or rigidity. Normal bowel sounds are audible. Extremities: No clubbing, cyanosis, or edema, except in area of interest, the right lower extremity. The patient is noted to have swelling to the right leg with ecchymosis. The patient is noted to have a bandage in place over the right anterior knee. This was gently removed. The patient has a small area of erythema that the patient reports has improved over time along the medial aspect of the distal portion of the wound. The patient has ozzy in place. The patient has no drainage noted. The patient has no significant edema at the wound edges. There is no crepitus. 2+ pulses in all 4 extremities. No calf tenderness on palpation. Back: No spinous process tenderness to palpation. No costovertebral angle tenderness to palpation. Neurologic Exam: Grossly nonfocal. Data Data Last Documented VS Vital Signs Date Time Temp Pulse Resp B/P Pulse Ox O2 Delivery O2 Flow Rate FiO2 07/29/16 02:50 16 07/29/16 02:44 98.3 85 131/64 98 Orders Wound Care (07/29/16 05:34) MDM Medical Decision Making Medical Screen Exam Complete: Yes Emergency Medical Condition: Yes Medical Record Reviewed: Yes Differential Diagnosis Postop wound infection, versus irritation related to new dressing, versus DVT Narrative Course During the course of the patients emergency department visit, the patients history, examination, and differential diagnosis were reviewed with the patient and the patient's . The patient had his dressing removed. The patient reported feeling greatly improved after seeing that the wound actually looks better compared to previously. We did discuss the other possibility of postop infection, versus DVT. I offered to do laboratory studies and an ultrasound to rule out DVT, however the patient reports that he does not want this done at this time. The patient will have a dressing reapplied. The patient will follow -up closely with his orthopedic physician. The patient is resting comfortably and feels better, is alert and in no distress. The patients examination findings were discussed with the patient. The repeat examination is unremarkable and benign. The history, exam, diagnostic testing, and current condition do not suggest any significant pathology to warrant further testing, continued ED treatment, admission, or surgical evaluation at this point. The vital signs have been stable. The patient does not have uncontrollable pain, intractable vomiting, or other significant symptoms. The patient's condition is stable and appropriate for discharge. The patient will pursue further outpatient evaluation with a primary care physician or other designated or consulting physician as indicated in the discharge instructions. The patient expressed understanding and was agreeable with this plan. Diagnosis Primary Impression: Status post total knee replacement, right Referrals: Sami Abbott MD 1 day Patient Instructions: General Instructions Med/Other Pt SpecificInfo: No Change to Meds Disposition: 01 DISCHARGE HOME Condition: Stable Zunilda Rodriguez MD Jul 29, 2016 06:12
== END 2016-07-29 06:34 | disposition home or self-care (01) ==
LOC: NEPE 02:42
DX: G89.18 Other acute postprocedural pain (principal); Z96.651 Presence of right artificial knee joint
CPT/HCPCS: 99281; 99283